=== PATIENT | female | born 1945 | race Caucasian/White ===

== ENCOUNTER → 2017-08-02 | Outpatient (CLI) | payer MEDICARE, OTHER ==
[~2017-08-02] MED LIST: AMOX-362 PO; AUG875 PO; MAX75 PO; MET500 PO; NAPR220C12 PO; PRE20 PO; ZOL5 PO
--- NOTE | 2017-08-08 08:34 | RADIOLOGY IMAGING REPORT ---
FACILITY: [facility] - [place] PATIENT NAME: NICK COTTRELL : [id number] MR: [id number] V: [id number] EXAM DATE: [id number] ORDERING PHYSICIAN: STEFAN CASEY TECHNOLOGIST: Lisa Rangel PROCEDURE:BILATERAL DIGITAL SCREENING MAMMOGRAM WITH CAD ASSISTED INTERPRETATION & 3D TOMOSYNTHESIS COMPARISON:Prior mammograms 07/28/16, 07/27/15, 07/25/14, 06/21/13, 03/28/12, 03/23/11 INDICATIONS:screening FINDINGS: A small amount of fibroglandular tissue is seen throughout the breasts. The parenchymal pattern has remained stable allowing for difference in mammographic technique & patient positioning. There is no evidence of malignant appearing mass, malignant appearing calcifications or other secondary sign of malignancy in either breast. DIAGNOSTIC CATEGORY 2--BENIGN FINDING. RECOMMENDATIONS: ROUTINE MAMMOGRAM AND CLINICAL EVALUATION. IMPRESSION: BIRADS 2: Benign finding No significant abnormality is seen Dictated by: Amanda Perkins M.D. on 08/04/2017 at 15:50 Transcribed by: RENETTA on 08/07/2017 at 8:23 Approved by: Amanda Perkins M.D. on 08/07/2017 at 11:44 [facility]
== END ==
LOC: MAMO 02:23
PROVIDERS: ATTEND Nurse Practitioner Psychiatric/Mental Health
DX: Z12.31 Encounter for screening mammogram for malignant neoplasm of breast (principal)
CPT/HCPCS: 77063; 77067

== ENCOUNTER → 2018-07-26 | Outpatient (CLI) | payer MEDICARE, OTHER ==
[~2018-07-26] MED LIST changes: +ATOR20TA65 PO; +CHOL10005 PO; +FLUT16SP19 NS; +LOSA50TA80 PO
== END ==
LOC: LAB 16:32
PROVIDERS: ATTEND Emergency Medicine
DX: I10 Essential (primary) hypertension (principal)
CPT/HCPCS: 36415; 82310; 82374; 82435; 82565; 82947; 84132; 84295; 84520

== ENCOUNTER → 2018-08-13 | Outpatient (CLI) | payer MEDICARE, OTHER ==
--- NOTE | 2018-08-14 08:26 | RADIOLOGY IMAGING REPORT ---
FACILITY: [facility] - [place] PATIENT NAME: NICK COTTRELL : [id number] MR: [id number] V: [id number] EXAM DATE: ORDERING PHYSICIAN: DEANGELO ESCOBEDO TECHNOLOGIST: Jeanine Navarro PROCEDURE:BILATERAL DIGITAL SCREENING MAMMOGRAM WITH CAD ASSISTED INTERPRETATION & 3D TOMOSYNTHESIS COMPARISON:Prior mammograms 08/02/17, 07/28/16, 07/27/15, 07/25/14, 06/21/13, 06/28/11. INDICATIONS:breast cancer screening FINDINGS: There are areas of scattered fibroglandular density seen throughout the breasts. There is an area of postsurgical scaring and macrocalcifications in the upper outer quadrant of the Right breast that have remained stable. DIAGNOSTIC CATEGORY 2--BENIGN FINDING. RECOMMENDATIONS: ROUTINE MAMMOGRAM AND CLINICAL EVALUATION. IMPRESSION: BIRADS 2: Benign finding. No significant abnormality is seen. Dictated by: Amanda Perkins M.D. on 08/13/2018 at 17:27 Transcribed by: RENETTA on 08/14/2018 at 8:15 Approved by: Amanda Perkins M.D. on 08/14/2018 at 8:25 [facility]
== END ==
LOC: MAMO 00:58
PROVIDERS: ATTEND Emergency Medicine
DX: Z12.31 Encounter for screening mammogram for malignant neoplasm of breast (principal); R92.1 Mammographic calcification found on diagnostic imaging of breast
CPT/HCPCS: 77063; 77067

== ENCOUNTER → 2018-11-26 | Outpatient (CLI) | payer MEDICARE, OTHER ==
[~2018-11-26] MED LIST changes: +BLOO-1511 MC; +MAGN400T23 PO; +MAGN400T52 PO; +METF-450 PO
== END ==
LOC: LAB 16:45
PROVIDERS: ATTEND Emergency Medicine
DX: E83.42 Hypomagnesemia (principal); I10 Essential (primary) hypertension
CPT/HCPCS: 36415; 82310; 82374; 82435; 82565; 82947; 83735; 84132; 84295; 84520